=== PATIENT | female | born 1940 | race Native Hawaiian/Other Pacific Islander ===

== ENCOUNTER 2016-08-15 09:46 | Emergency (ER) | payer OTHER, MEDICARE ==
[~2016-08-15] VITALS: Ht 160 cm; Wt 127.0 kg
[~2016-08-15 09:46] MED LIST: ASA LO-DOSE81 MG PO; CITALOPRAM10 MG PO; LISI10TA11 PO; PRAVACHOL20 MG PO
[2016-08-15 11:57] VITALS: BP 154/82; TEMP 98
== END 2016-08-15 11:59 | disposition home or self-care (01) ==
LOC: ED 09:46
PROC: 2W3CX1Z Immobilization of Right Lower Arm using Splint (ICD-10-PCS; principal; 2016-08-15)
DX: S52.531A Colles' fracture of right radius, initial encounter for closed fracture (principal); W18.39XA Other fall on same level, initial encounter; Y92.098 Other place in other non-institutional residence as the place of occurrence of the external cause
CPT/HCPCS: 99282

== ENCOUNTER 2017-01-17 14:11 | Outpatient (CLI) | payer OTHER, MEDICARE | END 2017-01-17 19:10 | disposition home or self-care (01) | LOC: MAMMO 14:11 | DX: Z12.31 Encounter for screening mammogram for malignant neoplasm of breast (principal) | CPT/HCPCS: G0202-TC ==

== ENCOUNTER 2017-05-09 16:09 | Outpatient (CLI) | payer OTHER, MEDICARE | END 2017-05-09 19:06 | disposition home or self-care (01) | LOC: RAD 16:09 | DX: R10.11 Right upper quadrant pain (principal) | CPT/HCPCS: 74022 ==

== ENCOUNTER 2018-02-01 09:42 | Outpatient (CLI) | payer OTHER, MEDICARE | END 2018-02-01 21:14 | disposition home or self-care (01) | LOC: MAMMO 09:42 | DX: Z12.31 Encounter for screening mammogram for malignant neoplasm of breast (principal) ==

== ENCOUNTER 2019-02-04 10:25 | Outpatient (CLI) | payer OTHER, MEDICARE | END 2019-02-04 16:00 | disposition home or self-care (01) | LOC: MAMMO 10:25 | DX: Z12.31 Encounter for screening mammogram for malignant neoplasm of breast (principal) ==

== ENCOUNTER 2019-03-04 08:59 | Outpatient (CLI) | payer OTHER, MEDICARE | END 2019-03-04 20:20 | disposition home or self-care (01) | LOC: US 08:59 | DX: R10.11 Right upper quadrant pain (principal) ==

== ENCOUNTER 2019-04-02 12:22 | Outpatient (CLI) | payer OTHER, MEDICARE | END 2019-04-02 19:26 | disposition home or self-care (01) | LOC: NM 12:22 | DX: R10.11 Right upper quadrant pain (principal) | CPT/HCPCS: A9537 ==

== ENCOUNTER 2019-10-24 08:52 | Outpatient (CLI) | payer OTHER, MEDICARE ==
[2019-10-24 09:42] LABS: POTASSIUM 4.3 mmol/L (3.6-5.2)
[2019-10-24 10:05] LABS: PLATELET COUNT 250 K/uL (152-353)
== END 2019-10-24 20:08 | disposition home or self-care (01) ==
LOC: LABW 08:52
PROVIDERS: Family Medicine
DX: K21.9 Gastro-esophageal reflux disease without esophagitis (principal); I10 Essential (primary) hypertension; R73.03 Prediabetes; E78.00 Pure hypercholesterolemia, unspecified; F32.9 Major depressive disorder, single episode, unspecified; F41.8 Other specified anxiety disorders; M19.90 Unspecified osteoarthritis, unspecified site; E55.9 Vitamin D deficiency, unspecified
CPT/HCPCS: 36415; 80053; 80061; 81000; 82306; 83036; 83735; 84439; 84443; 85027; 87077; 87086; 87088; 87186

== ENCOUNTER 2020-01-13 14:35 | Outpatient (CLI) | payer OTHER, MEDICARE | END 2020-01-13 23:59 | disposition home or self-care (01) | LOC: LABW 14:35 | DX: B35.1 Tinea unguium (principal) | CPT/HCPCS: 36415; 84450; 84460 ==

== ENCOUNTER 2020-02-10 14:08 | Outpatient (CLI) | payer OTHER, MEDICARE | END 2020-02-10 19:24 | disposition home or self-care (01) | LOC: MAMMO 14:08 | DX: Z12.31 Encounter for screening mammogram for malignant neoplasm of breast (principal) ==

== ENCOUNTER 2020-09-08 15:27 | Emergency (ER) | payer OTHER, MEDICARE ==
[~2020-09-08] VITALS: Ht 162.6 cm; Wt 136.1 kg
[2020-09-08 15:54] LABS: PLATELET COUNT 272 K/uL (152-353)
[2020-09-08] MEDS ORDERED: SIMV20TA2 PO (15:58)
[2020-09-08] MEDS ORDERED: OMEPRAZOLE40 MG PO (15:59)
[2020-09-08 16:00] LABS: POTASSIUM 4.4 mmol/L (3.6-5.2)
[2020-09-08] MEDS ORDERED: VITA D-1000 PO (16:01)
[2020-09-08 22:25] VITALS: BP 148/83; TEMP 97.4
== END 2020-09-08 22:25 | disposition still patient (30) ==
LOC: ED 15:27
PROVIDERS: Family Medicine
DX: R10.84 Generalized abdominal pain (principal); R11.2 Nausea with vomiting, unspecified; R14.0 Abdominal distension (gaseous)
CPT/HCPCS: 36415; 80053; 81000; 82150; 82272; 83690; 85027; 96360; 96375; 99284; J2405; Q9963

== ENCOUNTER 2020-09-23 08:54 | Outpatient (CLI) | payer OTHER, MEDICARE ==
[~2020-09-23 08:54] MED LIST changes: +OMEPRAZOLE40 MG PO; +SIMV20TA2 PO; +VITA D-1000 PO
[2020-09-23 09:36] LABS: PLATELET COUNT 224 K/uL (152-353)
[2020-09-23 09:51] LABS: POTASSIUM 4.9 mmol/L (3.6-5.2)
== END 2020-09-23 20:05 | disposition home or self-care (01) ==
LOC: LABW 08:54
PROVIDERS: ATTEND Family Medicine
DX: R10.9 Unspecified abdominal pain (principal); R73.9 Hyperglycemia, unspecified; R21 Rash and other nonspecific skin eruption; I10 Essential (primary) hypertension; Z79.899 Other long term (current) drug therapy; R11.0 Nausea; Z83.3 Family history of diabetes mellitus
CPT/HCPCS: 36415; 80053; 80061; 81000; 83036; 84439; 84443; 85027

== ENCOUNTER 2021-02-12 09:33 | Outpatient (CLI) | payer OTHER, MEDICARE | END 2021-02-12 21:58 | disposition home or self-care (01) | LOC: MAMMO 09:33 | PROVIDERS: ATTEND Family Medicine | DX: Z78.0 Asymptomatic menopausal state (principal); Z12.39 Encounter for other screening for malignant neoplasm of breast ==

== ENCOUNTER 2021-06-02 09:20 | Outpatient (CLI) | payer OTHER, MEDICARE ==
[2021-06-02 10:23] LABS: POTASSIUM 4.8 mmol/L (3.6-5.2)
[2021-06-02 10:26] LABS: PLATELET COUNT 232 K/uL (152-353)
== END 2021-06-02 20:13 | disposition home or self-care (01) ==
LOC: LABW 09:20
PROVIDERS: ATTEND Family Medicine
DX: I12.9 Hypertensive chronic kidney disease with stage 1 through stage 4 chronic kidney disease, or unspecified chronic kidney disease (principal); R73.03 Prediabetes; R06.09 Other forms of dyspnea; N18.31 Chronic kidney disease, stage 3a; E78.00 Pure hypercholesterolemia, unspecified; K21.9 Gastro-esophageal reflux disease without esophagitis; E55.9 Vitamin D deficiency, unspecified
CPT/HCPCS: 36415; 80053; 80061; 82306; 83036; 83735; 84439; 84443; 84550; 85027; 93005

== ENCOUNTER 2021-06-03 13:44 | Outpatient (CLI) | payer OTHER, MEDICARE | END 2021-06-03 19:28 | disposition home or self-care (01) | LOC: LAB 13:44 | PROVIDERS: ATTEND Family Medicine | DX: R06.09 Other forms of dyspnea (principal); R73.03 Prediabetes; N18.31 Chronic kidney disease, stage 3a; E78.00 Pure hypercholesterolemia, unspecified; K21.9 Gastro-esophageal reflux disease without esophagitis; E55.9 Vitamin D deficiency, unspecified; I12.9 Hypertensive chronic kidney disease with stage 1 through stage 4 chronic kidney disease, or unspecified chronic kidney disease | CPT/HCPCS: 81000 ==

== ENCOUNTER 2021-07-10 16:36 | Emergency (ER) | payer OTHER, MEDICARE ==
[~2021-07-10] VITALS: Ht 162.6 cm; Wt 136.1 kg
[2021-07-10 22:10] VITALS: BP 130/55; TEMP 97.8
== END 2021-07-10 22:10 | disposition home or self-care (01) ==
LOC: ED 16:36
DX: S20.212A Contusion of left front wall of thorax, initial encounter (principal); M79.18 Myalgia, other site; W01.198A Fall on same level from slipping, tripping and stumbling with subsequent striking against other object, initial encounter; Y92.89 Other specified places as the place of occurrence of the external cause
CPT/HCPCS: 81000; 96374; 99284; J1885

== ENCOUNTER 2021-08-20 21:05 | Emergency (ER) | payer OTHER, MEDICARE ==
[~2021-08-20] VITALS: Ht 162.6 cm; Wt 136.1 kg
[2021-08-20 21:59] LABS: PLATELET COUNT 219 K/uL (152-353)
[2021-08-20 22:37] LABS: PARTIAL THROMBOPLASTIN TIME 25.1 SECONDS (24.5-33.6)
[2021-08-20 23:46] VITALS: BP 149/77; TEMP 98.6
== END 2021-08-20 23:46 | disposition home or self-care (01) ==
LOC: ED 21:05
PROVIDERS: Hospitalist
DX: I50.9 Heart failure, unspecified (principal)
CPT/HCPCS: 80053; 80320; 82550; 83880; 84484; 85027; 85610; 85730; 93005; 96374; 99284; J1940

== ENCOUNTER 2021-09-01 16:42 | Outpatient (CLI) | payer OTHER, MEDICARE | END 2021-09-01 19:04 | disposition home or self-care (01) | LOC: RAD 16:42 | PROVIDERS: ATTEND Family Medicine | DX: R05.9 Cough, unspecified (principal); R06.09 Other forms of dyspnea; Z91.81 History of falling; R10.9 Unspecified abdominal pain; R07.81 Pleurodynia ==

== ENCOUNTER 2021-10-21 18:30 | Inpatient (IN) | payer OTHER, MEDICARE ==
[~2021-10-21] VITALS: Ht 160 cm; Wt 137.9 kg
[2021-10-21 19:56] LABS: PLATELET COUNT 238 K/uL (152-353)
[2021-10-21 20:00] VITALS: BP 104/67; TEMP 98.3
[2021-10-21 20:12] LABS: POTASSIUM 4.1 mmol/L (3.6-5.2)
[2021-10-21] MEDS ORDERED: METF500T PO (22:23)
[2021-10-21] MEDS ORDERED: LISITAB PO (22:25)
[2021-10-21] MEDS ORDERED: CITALOPRAM40 MG PO (22:26)
[2021-10-21] MEDS ORDERED: OMEPRAZOLE DR20 MG PO (22:27)
[2021-10-21] MEDS ORDERED: POTASSIUM CHLO20 ME2 PO (22:28)
[2021-10-21] MEDS ORDERED: FUROSEMIDE40 MG PO (22:29)
[2021-10-21 23:10] VITALS: BP 167/90; TEMP 98.3; Ht 160 cm; Wt 137.9 kg
[2021-10-22] VITALS (7 sets, daily range): BP systolic 108–151; BP diastolic 60–78; TEMP 97.9–98.6
[2021-10-23] VITALS: BP 147/62; BP 147/72; TEMP 98.1
[2021-10-23 01:30] LABS: PLATELET COUNT 237 K/uL (152-353)
[2021-10-23 03:13] LABS: POTASSIUM 4.8 mmol/L (3.6-5.2)
[2021-10-23 03:49] VITALS: BP 146/71; TEMP 98.5
[2021-10-23 08:00] VITALS: BP 157/82; TEMP 98.5
[2021-10-23 12:00] VITALS: BP 126/69; TEMP 98.3
[2021-10-23 16:00] VITALS: BP 121/61; TEMP 97.6
[2021-10-23 20:08] VITALS: BP 161/86; TEMP 97.6
[2021-10-24] VITALS (7 sets, daily range): BP systolic 107–155; BP diastolic 48–77; TEMP 96.7–98.7
[2021-10-24 04:55] LABS: PLATELET COUNT 210 K/uL (152-353)
[2021-10-24 05:29] LABS: POTASSIUM 3.6 mmol/L (3.6-5.2)
[2021-10-25 03:47] VITALS: BP 110/45; TEMP 98
[2021-10-25 08:00] VITALS: BP 140/84; TEMP 98.1
[2021-10-25 12:08] VITALS: BP 122/84; TEMP 97.6
[2021-10-25 16:00] VITALS: BP 139/60; TEMP 97.6
[2021-10-25 20:00] VITALS: BP 101/36; TEMP 97.8
[2021-10-26] VITALS: BP 101/38; TEMP 98
[2021-10-26 04:00] VITALS: BP 108/45; TEMP 98.2
[2021-10-26 06:25] LABS: POTASSIUM 4.6 mmol/L (3.6-5.2)
[2021-10-26 08:00] VITALS: BP 108/38; TEMP 98.3
== END 2021-10-26 15:15 | disposition swing bed (61) | DRG 190 ==
LOC: MED/SURG 18:30
PROVIDERS: ADMIT Family Medicine; ATTEND Family Medicine
DX: J44.1 Chronic obstructive pulmonary disease with (acute) exacerbation (principal); I50.31 Acute diastolic (congestive) heart failure; L03.116 Cellulitis of left lower limb; L03.115 Cellulitis of right lower limb; I13.0 Hypertensive heart and chronic kidney disease with heart failure and stage 1 through stage 4 chronic kidney disease, or unspecified chronic kidney disease; E78.49 Other hyperlipidemia; R42 Dizziness and giddiness; R53.1 Weakness; R06.09 Other forms of dyspnea; R30.0 Dysuria; H66.93 Otitis media, unspecified, bilateral; R01.1 Cardiac murmur, unspecified; K21.9 Gastro-esophageal reflux disease without esophagitis; M15.8 Other polyosteoarthritis; R62.7 Adult failure to thrive; E83.42 Hypomagnesemia; N76.0 Acute vaginitis; I73.89 Other specified peripheral vascular diseases; I35.0 Nonrheumatic aortic (valve) stenosis; E11.22 Type 2 diabetes mellitus with diabetic chronic kidney disease; N18.32 Chronic kidney disease, stage 3b
CPT/HCPCS: 36415; 36600; 80048; 80053; 81000; 82550; 82805; 82948; 83036; 83735; 83880; 84100; 84439; 84443; 84484; 85027; 87040; 87635; 93005; 94760; 96361; 96365; 96367; 96372; 96375; J0696; J1650; J1940; J3475; J7120; U0003

== ENCOUNTER 2021-10-26 15:15 | Inpatient (IN) | payer OTHER, MEDICARE ==
[~2021-10-26] VITALS: Ht 172.7 cm; Wt 137.9 kg
[~2021-10-26 15:15] MED LIST changes: +CITALOPRAM40 MG PO; +FUROSEMIDE40 MG PO; +LISITAB PO; +METF500T PO; +OMEPRAZOLE DR20 MG PO; +POTASSIUM CHLO20 ME2 PO
[2021-10-26 17:01] VITALS: BP 108/45; TEMP 98; Ht 172.7 cm; Wt 137.9 kg
[2021-10-26 20:00] VITALS: BP 115/56; TEMP 97.8
[2021-10-27 08:00] VITALS: BP 147/72; TEMP 97.3
[2021-10-27 19:58] VITALS: BP 142/60; TEMP 98.2
[2021-10-28 08:00] VITALS: BP 114/41; TEMP 98
[2021-10-28 13:49] LABS: POTASSIUM 5.2 mmol/L (3.6-5.2)
[2021-10-28 19:49] VITALS: BP 108/62; TEMP 98.4
[2021-10-29 08:00] VITALS: BP 155/60; TEMP 97.9
[2021-10-29 13:08] VITALS: BP 183/77; TEMP 97.5
[2021-10-29 20:00] VITALS: BP 112/48; TEMP 97.5
[2021-10-30 08:00] VITALS: BP 171/67; TEMP 97.8
[2021-10-30 20:00] VITALS: BP 109/51; TEMP 97.7
[2021-10-31 08:00] VITALS: BP 150/79; TEMP 97.6
== END 2021-10-31 15:00 | disposition home health service (06) | DRG 191 ==
LOC: MED/SURG 15:15
PROVIDERS: ADMIT Family Medicine; ATTEND Family Medicine
DX: J44.9 Chronic obstructive pulmonary disease, unspecified (principal); I50.9 Heart failure, unspecified; I75.023 Atheroembolism of bilateral lower extremities; B96.89 Other specified bacterial agents as the cause of diseases classified elsewhere; E66.01 Morbid (severe) obesity due to excess calories; R73.03 Prediabetes; M62.81 Muscle weakness (generalized); R26.2 Difficulty in walking, not elsewhere classified; R26.81 Unsteadiness on feet; Z74.1 Need for assistance with personal care
CPT/HCPCS: 80048; 83735; 84100; 87081; 94760; J1650

== ENCOUNTER 2021-11-10 16:20 | Inpatient (IN) | payer OTHER, MEDICARE ==
[~2021-11-10] VITALS: Ht 160 cm; Wt 137.9 kg
[2021-11-10] VITALS (7 sets, daily range): BP systolic 119–149; BP diastolic 50–82; TEMP 97.4–99.6; Ht 160 cm; Wt 137.9 kg
[2021-11-10 16:47] LABS: PLATELET COUNT 264 K/uL (152-353)
[2021-11-10 16:52] LABS: POTASSIUM 5.4 mmol/L (3.6-5.2)
[2021-11-10 17:08] LABS: PARTIAL THROMBOPLASTIN TIME 25.3 SECONDS (24.5-33.6)
[2021-11-11 03:57] VITALS: BP 146/91; TEMP 98.7
[2021-11-11 08:00] VITALS: BP 161/81; TEMP 97.6
[2021-11-11 12:00] VITALS: BP 191/114; TEMP 98.2
[2021-11-11] MEDS ORDERED: NYSTATIN1 POW TOP (12:12)
[2021-11-11] MEDS ORDERED: GABA300C2 PO (12:18)
[2021-11-11] MEDS ORDERED: HYDROCODONE BIT1 TA2 PO (12:20)
[2021-11-11 16:00] VITALS: BP 164/95; TEMP 97.9
[2021-11-11 16:53] LABS: POTASSIUM 4.4 mmol/L (3.6-5.2)
[2021-11-11 17:24] LABS: PLATELET COUNT 282 K/uL (152-353)
[2021-11-11 20:00] VITALS: BP 181/93; TEMP 98.2
[2021-11-11 23:57] VITALS: BP 93/66; TEMP 98.1
[2021-11-12 04:04] VITALS: BP 132/72; TEMP 98.2
[2021-11-12 04:39] LABS: PLATELET COUNT 276 K/uL (152-353)
[2021-11-12 04:58] LABS: POTASSIUM 4.4 mmol/L (3.6-5.2)
[2021-11-12 08:00] VITALS: BP 151/86; TEMP 97.1
[2021-11-12 12:00] VITALS: BP 151/86; TEMP 97.1
== END 2021-11-12 13:27 | DRG 190 ==
LOC: ED 16:20 → MED/SURG 19:00
PROVIDERS: ADMIT Hospitalist; ATTEND Family Medicine
DX: J44.0 Chronic obstructive pulmonary disease with (acute) lower respiratory infection (principal); I50.31 Acute diastolic (congestive) heart failure; I13.0 Hypertensive heart and chronic kidney disease with heart failure and stage 1 through stage 4 chronic kidney disease, or unspecified chronic kidney disease; L03.116 Cellulitis of left lower limb; L03.115 Cellulitis of right lower limb; J44.1 Chronic obstructive pulmonary disease with (acute) exacerbation; Z99.81 Dependence on supplemental oxygen; E78.49 Other hyperlipidemia; E11.22 Type 2 diabetes mellitus with diabetic chronic kidney disease; I35.0 Nonrheumatic aortic (valve) stenosis; N18.32 Chronic kidney disease, stage 3b; I73.89 Other specified peripheral vascular diseases; M15.8 Other polyosteoarthritis; K21.9 Gastro-esophageal reflux disease without esophagitis; R53.1 Weakness; R62.7 Adult failure to thrive
CPT/HCPCS: 36415; 36600; 51702; 80053; 81000; 82550; 82805; 83690; 83735; 83880; 84100; 84484; 85027; 85610; 85730; 87635; 93005; 94664; 94760; 96361; 96374; 99284; J1650; J1940; J1956; J2920; J2930; J3490; U0003

== ENCOUNTER 2021-11-12 13:30 | Inpatient (IN) | payer OTHER, MEDICARE ==
[~2021-11-12 13:30] MED LIST changes: +GABA300C2 PO; +HYDROCODONE BIT1 TA2 PO; +NYSTATIN1 POW TOP
== END 2021-11-17 09:22 | disposition still patient (30) ==
LOC: PAVA 13:30
PROVIDERS: ADMIT Family Medicine; ATTEND Family Medicine
DX: J44.1 Chronic obstructive pulmonary disease with (acute) exacerbation (principal); I50.30 Unspecified diastolic (congestive) heart failure; Z99.81 Dependence on supplemental oxygen; M62.81 Muscle weakness (generalized); R26.2 Difficulty in walking, not elsewhere classified; R26.81 Unsteadiness on feet; Z74.1 Need for assistance with personal care
CPT/HCPCS: 87081

== ENCOUNTER 2021-11-22 07:17 | Outpatient (CLI) | payer OTHER ==
[2021-11-22 08:25] LABS: POTASSIUM 5.4 mmol/L (3.6-5.2)
== END 2021-11-22 18:57 | disposition home or self-care (01) ==
LOC: LAB 07:17
PROVIDERS: ATTEND Family Medicine
DX: N18.32 Chronic kidney disease, stage 3b (principal); F32.89 Other specified depressive episodes; F41.9 Anxiety disorder, unspecified; M62.81 Muscle weakness (generalized); R26.81 Unsteadiness on feet
CPT/HCPCS: 80053; 83735

== ENCOUNTER 2021-12-17 08:12 | Inpatient (IN) | payer OTHER | END 2021-12-31 15:41 | disposition home or self-care (01) | LOC: PAVB 08:12 → PAVC 12-31 09:07 | PROVIDERS: ADMIT Family Medicine; ATTEND Family Medicine | DX: J44.1 Chronic obstructive pulmonary disease with (acute) exacerbation (principal); I50.30 Unspecified diastolic (congestive) heart failure; M62.81 Muscle weakness (generalized); R26.2 Difficulty in walking, not elsewhere classified; R26.81 Unsteadiness on feet; Z74.1 Need for assistance with personal care ==

== ENCOUNTER 2022-02-15 18:36 | Observation (INO) | payer OTHER ==
[~2022-02-15] VITALS: Ht 160 cm; Wt 120.9 kg
[2022-02-15] VITALS (8 sets, daily range): BP systolic 100–135; BP diastolic 56–70; TEMP 99.5
[~2022-02-15 18:36] MED LIST changes: +CIPROFLOXACIN500 M1 PO; -LISITAB PO
[2022-02-15 19:06] LABS: PLATELET COUNT 123 K/uL (152-353)
[2022-02-15 19:25] LABS: POTASSIUM 4.1 mmol/L (3.6-5.2)
[2022-02-16] VITALS (7 sets, daily range): BP systolic 97–148; BP diastolic 48–90; TEMP 97.8–99.4; Ht 160 cm; Wt 120.9 kg
[2022-02-16 05:26] LABS: PLATELET COUNT 119 K/uL (152-353)
[2022-02-16 05:35] LABS: POTASSIUM 3.5 mmol/L (3.6-5.2)
[2022-02-16] MEDS ORDERED: FAMOTIDINE20 MG PO (10:04)
[2022-02-16] MEDS ORDERED: HYDROCODONE BIT1 TA2 PO (10:07)
[2022-02-16] MEDS ORDERED: TRAMADOL HYDROC50 MG PO (12:21)
[2022-02-17 00:01] VITALS: BP 117/56; TEMP 97.6
[2022-02-17 04:00] VITALS: BP 149/68; TEMP 97.9
[2022-02-17 05:06] LABS: PLATELET COUNT 122 K/uL (152-353)
[2022-02-17 05:34] LABS: POTASSIUM 4.1 mmol/L (3.6-5.2)
[2022-02-17 08:00] VITALS: BP 130/69; TEMP 98.1
[2022-02-17 12:00] VITALS: BP 127/68; TEMP 98.5
[2022-02-17 16:00] VITALS: BP 142/67; TEMP 98.7
[2022-02-17 20:00] VITALS: BP 152/74; TEMP 97.7
[2022-02-18 00:05] VITALS: BP 145/69; TEMP 98
[2022-02-18 04:00] VITALS: BP 154/75; TEMP 97.9
[2022-02-18 08:18] VITALS: BP 166/82; TEMP 97.9
[2022-02-18 11:55] VITALS: BP 157/79; TEMP 98.1
[2022-02-18 16:22] VITALS: BP 161/87; TEMP 98
[2022-02-18 20:00] VITALS: BP 153/84; TEMP 97.8
[2022-02-19] VITALS: BP 158/74; TEMP 97.7
[2022-02-19 04:00] VITALS: BP 172/83; TEMP 97.5
[2022-02-19 08:00] VITALS: BP 172/87; TEMP 97.6
[2022-02-19 08:41] LABS: POTASSIUM 4.4 mmol/L (3.6-5.2)
[2022-02-19] MEDS ORDERED: GABA300C2 PO (09:07)
[2022-02-19] MEDS ORDERED: CITALOPRAM40 MG PO (09:07)
[2022-02-19] MEDS ORDERED: POTASSIUM CHLO20 ME2 PO (09:07)
[2022-02-19] MEDS ORDERED: PRED10TA27 PO (11:25)
== END 2022-02-19 13:10 | disposition home or self-care (01) ==
LOC: ED 18:36 → MED/SURG 20:40
PROVIDERS: Internal Medicine; ADMIT Emergency Medicine; ATTEND Internal Medicine
DX: U07.1 COVID-19 (principal); J96.22 Acute and chronic respiratory failure with hypercapnia; E66.01 Morbid (severe) obesity due to excess calories; Z68.42 Body mass index [BMI] 45.0-49.9, adult; N17.8 Other acute kidney failure; E87.1 Hypo-osmolality and hyponatremia; E78.49 Other hyperlipidemia; K21.9 Gastro-esophageal reflux disease without esophagitis; M15.8 Other polyosteoarthritis; J44.9 Chronic obstructive pulmonary disease, unspecified; I11.0 Hypertensive heart disease with heart failure; I50.9 Heart failure, unspecified; R62.7 Adult failure to thrive; R53.1 Weakness; E11.65 Type 2 diabetes mellitus with hyperglycemia
CPT/HCPCS: 36415; 80048; 80053; 81002; 82550; 82948; 83880; 84484; 85027; 87635; 93005; 96360; 96361; 96366; 96367; 96372; 99220; 99284; G0378; J0248; J1650; U0003

== ENCOUNTER 2022-02-20 15:57 | Emergency (ER) | payer OTHER ==
[~2022-02-20] VITALS: Ht 160 cm; Wt 120.7 kg
[2022-02-20 15:57] VITALS: TEMP 96.5
[~2022-02-20 15:57] MED LIST changes: +FAMOTIDINE20 MG PO; +PRED10TA27 PO; +TRAMADOL HYDROC50 MG PO
== END 2022-02-20 17:33 | disposition expired ==
LOC: ED 16:15
PROC: 5A12012 Performance of Cardiac Output, Single, Manual (ICD-10-PCS; principal; 2022-02-20)
DX: I46.9 Cardiac arrest, cause unspecified (principal); U07.1 COVID-19
CPT/HCPCS: 87635; 92950; 96374; 96375; 99285; J0171; J3490; U0003